=== PATIENT | female | born 1975 | race Hispanic/Latino ===

== ENCOUNTER → 2019-11-11 | Outpatient (CLI) | payer OTHER ==
--- NOTE | 2019-11-11 13:29 | Diagnostic Imaging Report ---
Exam: Abdominal film Clinical History: Kidney stones Comparison: None. DISCUSSION: The bowel gas pattern shows no dilated, air-filled loops of bowel. No mass effect or organomegaly. Right upper quadrant surgical clips suggestive of prior cholecystectomy. Multiple small densities project over the low sacrum, likely also related to prior surgery. No suspicious calcifications are identified projecting over the renal shadows or expected ureteral courses. There are multiple round pelvic calcifications likely representing phleboliths. Regional skeletal structures are intact. IMPRESSION: No plain radiographic evidence of urolithiasis. Signed by: Dr. Maynor Lang M.D. on 11/11/2019 1:25 PM
== END ==
LOC: RAD 10:59
PROVIDERS: ATTEND Urology
DX: Z87.442 Personal history of urinary calculi (principal)
CPT/HCPCS: 74018